=== PATIENT | female | born 1980 | race Caucasian/White ===

== ENCOUNTER 2024-11-13 10:18 | Outpatient (AMB) | payer MEDICARE, SELFPAY ==
[2024-11-13 11:48] VITALS: BMI 34.6
--- NOTE | 2024-11-13 11:48 | A.SPINEOV_ITS ---
Vital Signs 11/13/24 11:48 Height 4 ft 9 in Weight 160 lb BMI 34.6 Intake Visit Reasons: back pain thoracic and lumbar Intake Note: Ms. Zaragoza is here today c/o severe back pain Maintenance Painter Required: No Physical Exam Vital Signs: BMI result Body Mass Index 34.6 Assessment & Plan Assessment & Plan (1) Cerebral palsy: Code(s): G80.9 - Cerebral palsy, unspecified Category: Medical (2) Thoracic scoliosis: Code(s): M41.9 - Scoliosis, unspecified Category: Medical Plan Dear colleague On 11/13/2024 I saw for 2nd opinion Irina Zaragoza. She is a 44-year-old female with a history of cerebral palsy and wheelchair bound. She saw Dr. Mely Shelton for lumbar back pain and tingling. He told her that she was not a surgical candidate. She comes in the see me. I agree with Dr. Rodriguez. The patient has a extensive thoracal scoliosis without nerve root compression. The patient uses tramadol without effect. I told the patient that a surgical correction of the scoliosis not be beneficial. In fact, this most likely will increase her pain symptoms and the construct has a high chance of failing due to week musculature from the cerebral palsy. Not to mention that the pain may not be related to the scoliosis. Her best bet would be consult with pain management to see if she is a candidate for some form of stimulator. I will refer to Dr. Oconnor at [facility] for consult. Unfortunately, I am not able to help this patient. I spent 40 minutes in his consult to review imaging and to discuss an answer questions of the patient. Thank you for allowing me to participate in your patients care. total time spent was 40 minutes in counseling ,coordination of plan, personal review of imaging, surgical decision making and subsequent plan Kyle Harvey MD, PhD Spine Fellowship Trained Neurosurgeon Director, [facility] Orders: Referrals Pain Management Referral M41.9 - Scoliosis, unspecified Coding Level of Care Code New Pt Level 3 (25650) Diagnoses Cerebral palsy G80.9 Thoracic scoliosis M41.9
== END 2024-11-13 12:13 | disposition home or self-care (01) ==
PROVIDERS: Visit Provider Neurological Surgery
DX: G80.9 Cerebral palsy, unspecified (principal); M41.9 Scoliosis, unspecified
CPT/HCPCS: 99203

== ENCOUNTER → 2024-11-13 10:18 | Outpatient (BNVA) | payer MEDICARE, SELFPAY | PROVIDERS: Visit Provider Neurological Surgery | DX: G80.9 Cerebral palsy, unspecified (principal); M41.9 Scoliosis, unspecified; M54.50 Low back pain, unspecified | CPT/HCPCS: 99202 ==